=== PATIENT | female | born 1980 | race Caucasian/White ===

== ENCOUNTER 2016-12-28 08:13 | Observation (INO) | payer BC ==
--- NOTE | ~2016-12-28 | DS ---
Discharge Summary [id number] [place] [place]. [address] NAME: CHHAYA REENE : 84 STATUS : DIS Maria Isabel PAT#: [id number] AGE: 36 ADM/REG DATE : 12/28/16 MR#: [id number] REPORT SERV DATE: 01/03/17 DICTATED BY: Chelo PENA DATE: 01/03/17 REPORT STATUS : Draft TRANSCRIBED BY: MODL DATE: 01/03/17 ADMISSION DATE: 12/28/2016 DISCHARGE DATE: 12/28/2016 DIAGNOSES AT TIME OF DISCHARGE: 1. Gastroenteritis. 2. Nausea. 3. Vomiting. 4. Dehydration. CONSULTANTS: None. PROCEDURES: None. 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 She was admitted in observation status for further evaluation. She was aggressively treated with antiemetics and IV fluids. Further evaluation to the emergency room showed unremarkable laboratory and imaging. Following several liters of fluid and medication, the patient was felt at her baseline and was requesting to be discharged home to continue to convalesce in the home setting. Because of her significant improvement as well as her negative laboratory and imaging, we let the patient go home with her family with oral dissolvable Zofran for nausea with plans to follow up with her PCP in approximately one week. DICTATED BY: Chelo Pena M.D. [facility]/KOBI Chelo Pena M.D. / [id number] CC: Chelo Pena M.D.
--- NOTE | ~2016-12-28 | HP ---
History And Physical [id number] [facility] [place]. [address] NAME: CHHAYA RENEE : 84 STATUS : ADM Maria Isabel PAT#: [id number] AGE: 36 ADM/REG DATE : 12/28/16 MR#: [id number] REPORT SERV DATE: 12/28/16 DICTATED BY: BURKE VÁSQUEZ DATE: 12/28/16 REPORT STATUS : Draft TRANSCRIBED BY: MODVin DATE: 12/28/16 DATE OF ADMISSION: 12/28/2016 CHIEF COMPLAINT: Fever, nausea, and vomiting. HISTORY OF PRESENT ILLNESS: The patient is a very pleasant, 36-year-old, white female, who works in here in the emergency department, I know her well, she states that 4 days prior to admission, she developed a fever to 104. She then developed nausea and vomiting. Her nausea and vomiting became intractable over the last 24 hours. She had no abdominal pain. No diarrhea. She had a MMR booster about two weeks ago. She did not have any cough or sputum. She did not have any chest pain. She had again no abdominal symptoms other than nausea and vomiting. She has some sore lymph nodes in her left tonsillar region but no true sore throat and felt like her neck was a little swollen there. She has a chronic sinus tachycardia and a history of SVT. She states her pulse usually runs in the 120s. She previously was on a beta-ajay but is not currently taking it. She was discontinued on this medicine just after her last . She has not had a flu swab or a strep screen in the emergency department. Her vomiting became so severe, she presented to the ER today. PAST MEDICAL HISTORY: 1. H1N1 flu. 2. SVT. 3. Sinus tachycardia. 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 5. Hypothyroidism but her last TSH in August was normal. SOCIAL HISTORY: Nonsmoker. Nondrinker. Nurse working in the ER. She has 1 child. She is . Her is disabled. FAMILY HISTORY: She is adopted. ALLERGIES: CODEINE AND ZITHROMAX. PAST SURGICAL HISTORY: She has had no surgeries. HOME MEDICATIONS: Reviewed and include p.r.n. ibuprofen and Airborne Tablets p.r.n. REVIEW OF SYSTEMS: Full 10-point review of systems obtained. Pertinent positives mentioned in the HPI. PHYSICAL EXAMINATION: VITAL SIGNS: Initial temperature was 98.2 and followup was 100.4, blood pressure 112/69, pulse is currently 120, and sats are 100%. GENERAL: Well-developed white female, in no obvious distress. HEENT: Normocephalic, atraumatic. NECK: She has some mild lymphadenopathy in the left tonsillar region. Her throat is slightly erythematous. Her neck is supple. Pupils are equal, round, and reactive to light History And Physical [address] [address] NAME: CHHAYA RENEE : 84 STATUS : ADM Maria Isabel PAT#: [id number] AGE: 36 ADM/REG DATE : 12/28/16 MR#: [id number] REPORT SERV DATE: 12/28/16 DICTATED BY: BURKE VÁSQUEZ DATE: 12/28/16 REPORT STATUS : Draft TRANSCRIBED BY: KOBI DATE: 12/28/16 and accommodation. HEART: Tachycardic but no murmurs, rubs, or gallops. LUNGS: Grossly clear with good symmetrical air entry. ABDOMEN: Soft. She has absolutely no tenderness in her abdomen and she has positive bowel sounds. EXTREMITIES: Warm and dry. SKIN: Her skin is intact without obvious rash or lesion. NEUROLOGIC: She is alert. She is oriented to person, place, and time. Her cranial nerves 2 through 12 appear to be intact and she moves all four extremities appropriately. PSYCHIATRIC: Her mood and affect are appropriate. LABORATORY AND X-RAY: H and H 13.6 and 40, white count 9, and platelets 212. LFTs are normal. Urinalysis is negative. Calcium was low at 7.8. Albumin is 2.3. Troponin is 0.02. Sodium 144, potassium 3.8, chloride 113, CO2 of 24, BUN and creatinine 9 and 0.71. Glucose 105. The EKG shows sinus tach. ASSESSMENT/PLAN: 1. Fever with associated nausea and vomiting. Sinus tachycardia. I suspect she has a viral illness. I am going to do a flu swab as well as a strep screen on her. I am going to hydrate her aggressively. Provide Tylenol p.r.n. for fever. She is not having any abdominal pain, so I do not think we need to scan her abdomen. I am going to do a chest x-ray and a flat and upright of her abdomen to be on the safe side. We will culture her blood. We will check a procalcitonin. Check a lactic acid. We will follow up her strep screen as well as her flu swab and go from there. We will provide antiemetics and aggressive IV hydration. Hopefully she will improve in the next 24 hours. 2. Sinus tachycardia likely secondary to volume depletion, ongoing fever, also she has a baseline sinus tach at 120. We will follow her on a tele bed. We will hydrate her aggressively and treat her underlying fever. 3. Mild left-sided tonsillar lymphadenopathy, again certainly could be a viral illness. She is going to get a strep screen, however, we will follow. 4. Deep venous thrombosis prophylaxis. Subcutaneous Lovenox. 5. History of hypothyroidism. Given continued tachycardia, I am going to check her TSH while she is here again. 6. Disposition pending above. [facility]/KOBI Burke Vásquez M.D. / [id number] CC: Chelo Pena M.D.
[~2016-12-28 08:13] MED LIST: ACET500CAP PO; LOP50 PO; PRENATAL PO; TRANDAT100 PO; ZOFRAN4 PO
[2016-12-28 10:51] LABS: BASOPHILS 0 %; EOSINOPHILS 0.1 %; EOSINOPHILS ABSOLUTE 0.01 10/3/uL (0.0-0.53); HEMOGLOBIN 13.6 g/dL (12.0-16.0); IMMATURE GRANULOCYTES 0.2 %; IMMATURE GRANULOCYTES ABSOLUTE 0.02 10/3/uL (0.0-0.11); LYMPHOCYTES 6.3 %; LYMPHOCYTES ABSOLUTE 0.56 10/3/uL (0.67-4.30); MEAN CORPUS HGB CONC 33.9 g/dL (32.0-36.0); MEAN CORPUSCULAR HEMOGLOB 27.9 pg (26.0-34.0); MEAN PLATELET VOLUME 9.5 fL (9.2-13.0); MONOCYTES 3.7 %; MONOCYTES ABSOLUTE 0.33 10/3/uL (0.21-1.20); NEUTROPHILS 89.7 %; NEUTROPHILS ABSOLUTE 8.02 10/3/uL (2.02-8.40); RBC DISTRIBUTION WIDTH 12.9 % (12.0-16.0); RED CELL COUNT 4.88 10/6/uL (4.0-5.6)
[2016-12-28 10:52] LABS: ER CBC TAT 0 Hrs 04 MinsNP; HEMATOCRIT 40.1 % (36.0-48.0); MEAN CORPUSCULAR VOLUME 82.2 fL (80-100); PLATELET COUNT 212 10/3/uL (150-400); WHITE BLOOD CELLS 8.9 10/3/uL (4.5-10.5)
[2016-12-28 11:04] LABS: ALBUMIN 3.4 G/DL (3.5-5.0); ALKALINE PHOSPHATASE 39 U/L (45-117); BUN (BLOOD UREA NITROGEN) 9 MG/DL (6-23); CHLORIDE, SERUM 113 MMOL/L (96-112); CO2 (CARBON DIOXIDE) 24 MMOL/L (24-34); CREATININE 0.71 MG/DL (0.55-1.02); GFR AFRICAN AMERICAN 129 ML/MIN (>=60); GFR NON AFRICAN AMERICAN 111 ML/MIN (>=60); GLOBULIN 3.5 G/DL (2.5-4.1); GLUCOSE, SERUM 105 MG/DL (60-99); POTASSIUM, SERUM 3.8 MMOL/L (3.5-5.3); SGOT(AST) 13 U/L (5-40); SGPT(ALT) 19 U/L (5-65); SODIUM, SERUM 144 MMOL/L (135-148); TOTAL BILIRUBIN 0.2 MG/DL (0-1.2); TOTAL PROTEIN 6.9 G/DL (6.0-8.5)
[2016-12-28 11:05] LABS: CALCIUM, SERUM 7.8 MG/DL (8.5-10.4)
[2016-12-28 11:27] LABS: ASCORBIC ACID (UR NOT ORDER) NEG (NEG); BILIRUBIN, URINE NEGATIVE (NEG); ER URINALYSIS TAT 0 Hrs 12 Mins; KETONE, URINE NEGATIVE (NEG); LEUKOCYTE ESTERASE(NOT OR NEG (NEG); NITRITE (URINE) NEG (NEG); WBC (NOT ORDERED) (RFLEX) 2 (0-5)
[2016-12-28 11:32] LABS: TROPONIN I <0.02 NG/ML (<0.05)
[2016-12-28] MEDS ORDERED: AIRBORNE PO (11:59)
[2016-12-28] MEDS ORDERED: ADVIL PO (11:59)
[2016-12-28 13:49] LABS: INFLUENZA A SCREEN NEGATIVE (NEGATIVE); INFLUENZA B SCREEN NEGATIVE (NEGATIVE)
[2016-12-28 16:03] LABS: PROCALCITONIN 0.05 ng/mL (<0.5)
[2016-12-28 16:29] LABS: LACTATE 0.9 MMOL/L (0.3-2.4)
== END 2016-12-28 19:03 | disposition home or self-care (01) ==
LOC: ER 08:13 → CDU1 13:16
PROVIDERS: Internal Medicine; Nurse Practitioner
DX: K52.9 Noninfective gastroenteritis and colitis, unspecified (principal); R00.0 Tachycardia, unspecified; R50.9 Fever, unspecified; R59.1 Generalized enlarged lymph nodes; E03.9 Hypothyroidism, unspecified; Z88.5 Allergy status to narcotic agent; Z88.1 Allergy status to other antibiotic agents
CPT/HCPCS: 71010; 74020; 80053; 81001; 82330; 83605; 83690; 83735; 84145; 84443; 84484; 84703; 85025; 87040; 87070; 87804; 87880; 93005; 96374; 96375; 96376; 99285; G0378; J2405; J2550